=== PATIENT | female | born 1965 | race Caucasian/White ===

== ENCOUNTER 2018-05-26 16:16 | Outpatient (CLI) | payer BC ==
[2018-05-26 17:19] LABS: Hemoglobin 13.5 g/dL (12.0-16.0); Mean Corpuscular HGB CONC 34.9 g/dL (32.0-36.0); Mean Corpuscular Hemoglobin 31.6 pg (27.0-31.0); Mean Corpuscular Volume 90.6 fL (78.0-98.0); Mean Platelet Volume 6.4 fL (7.4-10.4); Platelet Count 249 thou/uL (130-400); RBC Distribution Width 11.5 % (11.5-14.5); Red Blood Cell (RBC) Count 4.28 mill/uL (4.20-5.40); White Blood Cell (WBC) Count 7.7 thou/uL (4.8-10.8)
[2018-05-26 17:32] LABS: BHCG - Serum Negative (NEGATIVE); Pregs Control Background? CLEAR/WHITE (CLR/WHITE); Pregs Control Bar Appear? YES (CONTROL BAR)
== END 2018-05-26 16:17 | disposition home or self-care (01) ==
LOC: LABBT 16:16
PROVIDERS: ATTEND Obstetrics & Gynecology
DX: Z01.812 Encounter for preprocedural laboratory examination (principal)
CPT/HCPCS: 84703; 85027; 86850; 86900; 86901

== ENCOUNTER 2018-05-26 17:00 | Inpatient (IN) | payer BC ==
[2018-05-26 16:56] VITALS: BMI 31.6
--- NOTE | 2018-05-26 20:02 | HP ---
DATE OF SURGERY SCHEDULED: 05/27/2018 HISTORY OF PRESENT ILLNESS: Ms. Hogan is a 52-year-old white female who presented with symptoms of pe lvic pain, fullness and heaviness. She has a history of uterine fibroids in the past. She has press ure in the pelvis with her bowel movements too. Last period was 3 months ago. She notes some urinar y frequency due to the pelvic fullness she is experiencing. She was seen in my office for this compl aint on 02/26/2018. On exam, she was noted to have an enlarged uterus with fibroids measuring 14-wee k size. Pelvic ultrasound was performed and confirmed the findings. PAST MEDICAL HISTORY: Some IBS with chronic constipation, GERD, restless legs and some depression, a nxiety. PAST SURGICAL HISTORY: Breast augmentation, laparoscopy x2 and tonsillectomy. SOCIAL HISTORY: Minimal alcohol use. She is a smoker. She is single and works c software developer. FAMILY HISTORY: Essential hypertension, hyperlipidemia. PHYSICAL EXAMINATION: VITAL SIGNS: Her blood pressure is 120/80, pulse 90, respirations 18, height 62 inches, weight 165 p ounds. BMI of 30.2. HEENT: Within normal limits. CHEST: Clear to auscultation. HEART: Regular rate and rhythm. S1, S2 heart sounds, no murmurs, rubs or gallops. ABDOMEN: Soft, nontender, nondistended. No hepatosplenomegaly. PELVIC: Vulva and vagina had no lesions. Cervix had no lesions. Pap smear obtained was normal. Ne gative for abnormal cells and HPV negative. Uterus was 12-14 week size consistent with fibroid ramirez es. Adnexa was nontender with no masses. ASSESSMENT: A 52-year-old white female with symptomatic 12-14 week uterine fibroids, pelvic pressure and pain with mass effect symptoms. PLAN: Proceed with a robotic total laparoscopic hysterectomy and BSO with excite procedure cadence chino for morcellation. Risks and benefits of this procedure were discussed in detail. She is set for surgery on 05/27/2018.
[2018-05-27] MEDS ORDERED: Famotidine/PF 20 mg/2ml Vial ONE (06:20)
[2018-05-27] MEDS ORDERED: Gabapentin 300 MG CAP ONE (06:20)
[2018-05-27] MEDS ORDERED: CEFAZOLIN/Water 2 GM/20 ML SYRINGE ONE (06:20)
[2018-05-27] MEDS ORDERED: CeleCOXIB 100 MG CAP ONE (06:20)
[2018-05-27] MEDS ORDERED: Bupivacaine HCl 0.5%/Epinephrine 1:200,000/PF 30 ml Vial ONE (06:53)
[2018-05-27] MEDS ORDERED: Ondansetron HCl/PF 4 MG/2 ML Vial ONE ×2 (07:00→14:26)
[2018-05-27] MEDS ORDERED: Scopolamine 1.5 mg/72 hour Patch ONE (07:07)
[2018-05-27] MEDS ORDERED: Midazolam HCl 2 mg/2 ml Vial ONE (07:07)
[2018-05-27] MEDS ORDERED: Fentanyl 100 MCG/2 ML VIAL ONE ×4 (07:13→10:28)
[2018-05-27] MEDS ORDERED: HYDROmorphone 0.5 MG/0.5 ML SYRINGE ONE (07:13)
[2018-05-27] MEDS ORDERED: Promethazine HCl 25 MG/ML VIAL ONE (07:13)
[2018-05-27] MEDS ORDERED: Morphine 4 MG/ML VIAL SLOW IVP PRN (09:54)
[2018-05-27] MEDS ORDERED: Bisacodyl 10 MG SUPP PR PRN (09:54)
[2018-05-27] MEDS ORDERED: Promethazine HCl 25 MG/ML VIAL IM PRN (09:54)
[2018-05-27] MEDS ORDERED: diphenhydrAMINE 25 MG CAP PO PRN (09:54)
[2018-05-27] MEDS ORDERED: traMADol HCl 50 MG TAB PO PRN (09:54)
[2018-05-27] MEDS ORDERED: Acetaminophen 325 MG TAB PO PRN (09:54)
[2018-05-27] MEDS ORDERED: Ondansetron HCl/PF 4 MG/2 ML Vial IVP PRN (09:54)
[2018-05-27] MEDS ORDERED: Estradiol 0.05mg/24 Hour Patch (Weekly) TD SCH (10:00)
--- NOTE | 2018-05-27 12:04 | OP ---
DATE OF PROCEDURE: 05/27/2018 PREOPERATIVE DIAGNOSIS: A 52-year-old white female with symptomatic 14 and 15-week uterine fibroids with pelvic pain and pressure. POSTOPERATIVE DIAGNOSIS: A 52-year-old white female with symptomatic 14 and 15-week uterine fibroids with pelvic pain and pressure. PROCEDURE PERFORMED: Robotic total laparoscopic hysterectomy with bilateral salpingo-oophorectomy wi th a removal of uterus via the EXCITE technique. SURGEON: Neema Ventura M.D. INTERMEDIATE MANAGER: Reyes Kenny D.O. ANESTHESIA: General endotracheal. ESTIMATED BLOOD LOSS: 30 mL. COMPLICATIONS: None. COUNTS: Correct x2. ANTIBIOTICS: Two grams Ancef eye surgeon to the OR along with the ERS protocol. PATHOLOGY: Uterus, cervix, bilateral tubes and ovaries. FINDINGS: 1. Normal bilateral tubes and ovaries. 2. Multiple numerous small 2-3 cm size uterine fibroids 3. Bilateral ureteral peristalsis visualized post-procedure and bladder was watertight distention ov er 300 mL post-procedure with clear urine draining. DISPOSITION: To the recovery room stable. DESCRIPTION OF OPERATIVE PROCEDURE: The patient previously received informed consent in regard to suh rgery. She was taken back to the operating room where she received a general endotracheal anesthetic agent without complications. She was placed in the dorsal lithotomy position with Curry stirrups an d prepped and draped in usual sterile fashion. A sidearm speculum along with Buckner catheter was plac ed at this time. Cervix was grasped with single tooth tenaculum and sounded to 10 cm. A size 10 cm MARIBETH uterine manipulator with 3.5 cm cervical cup was then placed. Attention was then turned to the abdomen where perspective trocar sites were infiltrated with 0.5% Marcaine with epinephrine. A 12 mm supraumbilical incision was made vertically. A Veress needle was entered into the abdominal cavity with the patient pressure to be less than 5 and insufflated to a patient pressure of 15, approximatel y 5 liters of carbon dioxide gas. Veress needle was then removed and a size 12 mm trocar was placed. The robotic laparoscope was introduced through the trocar sleeve confirming proper entry. Addition al bilateral lower quadrant 8 mm trocars were placed and laparoscopic guidance along with a right upp er quadrant 11 mm acute care assistant port. The small Gelpoint obturator was then placed in the supraumbilical incision. The incision was extended and the fascia approximately 2 cm and then the Gelpoint device were placed. The 12 mm trocar sleeve was placed through the Gelpoint apparatus prior to connection o f the Gelpoint to the obturator. The robot was then docked in usual fashion. The uterus was elevate d from the pelvis. The left IP ligament was identified. My acute care assistant grasped the fallopian tube. T he IP ligament was coagulated with bipolar fenestrated cautery was transected. Serial coagulation hu gging close uterine specimen of the broad ligament was carried out with transection to the left round ligament was reached. The ureter had been dissected atraumatically laterally towards the pelvic diana ewall during the process of freeing it from the operative site. The anterior leaf of the broad ligam ent was entered. The vesicouterine peritoneal incision was incised in a layering technique. The ayana dder was taken down atraumatically from the lower uterine segment and past the cervical vaginal barber n which was visualized through the indentation of the MARIBETH uterine manipulator cup. Uterine vessels were skeletonized. They were coagulated in the internal cervical os region. The right fallopian tub e was then grasped by my acute care assistant. The IP ligament on the right side was coagulated and transected with monopolar scissors. Serial coagulation of the broad ligament, hugging again close uterus was ca rried out until the right round ligament was reached. It was coagulated and transected. Again, the anterior leaf of the broad ligament was entered and the vesicouterine peritoneum was taken down in a layering technique dropping the bladder atraumatically past the cervical vaginal angle. The uterine vessels on the right side and uterus were skeletonized in a layering technique coagulated internal ce rvical os. The course of the ureter was noted to be lateral adjacent to the pelvic sidewall. Once t his had been accomplished, the anterior colpotomy was then developed starting from 12 to 3 and 12 to 9 o'clock position. The uterine vessels again were coagulated and transected during this process. T he posterior colpotomy was then completed from 6-9 and 6-12. The specimen was then left in the abdom en. Moistened sponge was then placed in the vagina proven to continue pneumoperitoneum. This was af ter the MARIBETH uterine manipulator was removed. My acute care assistant exchanged the monopolar scissors to Solarcentury needle tilt tray driver and then passed a Stratafix suture into the abdomen. The vaginal cuff was closed in r unning continuous fashion starting the right angle back towards the midline. Good hemostasis was con firmed. The pelvis irrigated and suctioned. All pedicle sites were noted to be hemostatic. The lar ge aces tissue containing bag which had previously been prepped during the placement of the Gelpoint. In regards to this had been folded accordion passage and that the bag was placed down into the pelvis . The sutures holding in a fixed accordion folding was cut opening the bag. My acute care assistant and me the n were able to open the bag and proper positioning and then deliver the uterine specimen into the bag . The edges of the bag were brought up and the black string of the aces bag was then grasped with at raumatic grasper and then this was brought through a loop that had been placed during the process of the bag and since this through, securing closure of the bag with the specimen inside of it. Then, my acute care assistant then brought in an atraumatic grasper through the Gelpoint and grab the bag tagged and pul led this up through the Gelpoint. The bipolar fenestrated cautery and Lockwood needle drivers had been removed. The robot was then undocked and the bag was then delivered through the small Gelpoint devic e intact with the specimen inside. The retractor of the Gelpoint was then pulled out and then placed with inside the bag to add protection of the bag while the morcellation process was carried out. Th e uterus was grasped with Sonu thyroid clamps with a scalpel and C cutting technique. The specimen was morcellated in situ and the bag removing in a piecemeal fashion until it was all removed. The ac es bag was then removed through the supraumbilical incision and was noted to be intact. There is no evidence of any bowel injury beneath the fascial site. The fascia was then closed with 0 Vicryl sutu re in running continuous fashion in the supraumbilical region. Remainder of the trocar sites were cl osed with 4-0 Monocryl suture in subcuticular fashion with Dermabond. The vaginal cuff was inspected and was hemostatic. The Buckner catheter was draining clear urine. The patient was awakened from ane sthesia and transferred to the recovery room in stable condition.
[2018-05-27] MEDS: Lactated Ringer's 1,000 ML IV SCH ×2 (12:08→18:22)
[2018-05-27] MEDS: Ketorolac Tromethamine 30 MG/ML VIAL IVP SCH ×3 (12:20→23:45)
[2018-05-27] MEDS: Acetaminophen 1,000 MG in Premix Bag 1 BAG IVPB SCH ×3 (12:20→23:45)
[2018-05-27] MEDS ORDERED: Lidocaine 1% PF 5 ML VIAL ONE (14:26)
[2018-05-27] MEDS ORDERED: Glycopyrrolate 0.2 MG/ML 5 ML SYRINGE ONE (14:26)
[2018-05-27] MEDS ORDERED: Dexamethasone 20 MG/5 ML VIAL ONE (14:26)
[2018-05-27] MEDS ORDERED: PHENYLEPHRINE-NS 100 MCG/ML 10 ML SYRINGE ONE (14:26)
[2018-05-27] MEDS ORDERED: PROPOFOL 200 MG/20 ML VIAL ONE (14:26)
[2018-05-27] MEDS ORDERED: Ketorolac Tromethamine 30 MG/ML VIAL ONE (14:26)
[2018-05-27] MEDS: Simethicone Chewable 80 MG TAB PO PRN (19:45)
[2018-05-27] MEDS: traMADol HCl 50 MG TAB PO PRN (19:45)
[2018-05-27] MEDS: Ibuprofen 800 MG TAB PO SCH (20:59)
[2018-05-27] MEDS ORDERED: rOPINIRole HCl 0.25 MG TAB PO SCH (21:00)
[2018-05-27] MEDS: Zolpidem Tartrate 5 MG TAB PO PRN (23:50)
[2018-05-28] MEDS: Zolpidem Tartrate 5 MG TAB PO PRN (00:10)
[2018-05-28] MEDS: Acetaminophen 1,000 MG in Premix Bag 1 BAG IVPB SCH (05:33)
[2018-05-28] MEDS: Ibuprofen 800 MG TAB PO SCH (05:34)
[2018-05-28] MEDS: Ketorolac Tromethamine 30 MG/ML VIAL IVP SCH (05:37)
[2018-05-28] MEDS: Lactated Ringer's 1,000 ML IV SCH (05:37)
[2018-05-28 06:14] LABS: Hemoglobin 12.7 g/dL (12.0-16.0); Mean Corpuscular HGB CONC 34.4 g/dL (32.0-36.0); Mean Corpuscular Hemoglobin 31.7 pg (27.0-31.0); Mean Corpuscular Volume 92.2 fL (78.0-98.0); Mean Platelet Volume 6.5 fL (7.4-10.4); Platelet Count 202 thou/uL (130-400); RBC Distribution Width 11.5 % (11.5-14.5); Red Blood Cell (RBC) Count 3.99 mill/uL (4.20-5.40); White Blood Cell (WBC) Count 9.4 thou/uL (4.8-10.8)
[2018-05-28] MEDS: traMADol HCl 50 MG TAB PO PRN (07:50)
[2018-05-28] MEDS: Simethicone Chewable 80 MG TAB PO PRN (07:57)
--- NOTE | 2018-05-28 08:17 | PDOC.EVN ---
Event Note - Event Note Event Note: Tolerating diet. Ambulating and voiding. AFVSS. HCT 36.8% ABD:soft/non distended normoactive bowel sounds. A/P Doing weel post op day 1 from robotic tlh/bso with excite d/c home .F/u in 2 and 6 weeks.
[2018-05-28 08:42] VITALS: BP 107/57; TEMP 98.5
[2018-05-28] MEDS ORDERED: VORTIOXETINE PO SCH (09:00)
[2018-05-28] MEDS ORDERED: LINACLOTIDE PO SCH (09:00)
[2018-05-28] MEDS ORDERED: LISDEXAMFETAMINE DIMESYLATE PO SCH (09:00)
== END 2018-05-28 09:35 | disposition home or self-care (01) | DRG 743 ==
LOC: SURG A 05-27 06:02 → 3SE 05-27 11:10
PROVIDERS: ADMIT Obstetrics & Gynecology; ATTEND Obstetrics & Gynecology
PROC: 0UT94ZZ Resection of Uterus, Percutaneous Endoscopic Approach (ICD-10-PCS; principal; 2018-05-27)
PROC: 0UT24ZZ Resection of Bilateral Ovaries, Percutaneous Endoscopic Approach (ICD-10-PCS; 2018-05-27)
PROC: 0UT74ZZ Resection of Bilateral Fallopian Tubes, Percutaneous Endoscopic Approach (ICD-10-PCS; 2018-05-27)
PROC: 8E0W4CZ Robotic Assisted Procedure of Trunk Region, Percutaneous Endoscopic Approach (ICD-10-PCS; 2018-05-27)
DX: D25.9 Leiomyoma of uterus, unspecified (principal); K21.9 Gastro-esophageal reflux disease without esophagitis; G25.81 Restless legs syndrome; F41.9 Anxiety disorder, unspecified; F32.9 Major depressive disorder, single episode, unspecified; K58.1 Irritable bowel syndrome with constipation; F17.210 Nicotine dependence, cigarettes, uncomplicated; Z79.899 Other long term (current) drug therapy
CPT/HCPCS: 36415; 85027; 88307; J0131; J0670; J1100; J1170; J1885; J2001; J2250; J2405; J2550; J2704; J3010; S0028

== ENCOUNTER 2019-11-16 08:13 | Outpatient (CLI) | payer OTHER ==
--- NOTE | 2019-11-18 10:56 | MMO ---
Bilateral MAMMO Bilat Screen DDI+CB. CLINICAL HISTORY: Patient is 53 years old and is seen for screening. VIEWS: The views performed were: bilateral craniocaudal with tomosynthesis and bilateral mediolateral oblique with tomosynthesis. FILMS COMPARED: The present examination has been compared to prior imaging studies performed at [facility] on 10/12/2010 and 01/13/2018. This study has been interpreted with the assistance of computer-aided detection. MAMMOGRAM FINDINGS: There are scattered fibroglandular densities. There are no suspicious masses, suspicious calcifications, or new areas of architectural distortion. IMPRESSION: THERE IS NO MAMMOGRAPHIC EVIDENCE OF MALIGNANCY. A ROUTINE FOLLOW-UP MAMMOGRAM IN 1 YEAR IS RECOMMENDED. THE RESULTS OF THIS EXAM WERE SENT TO THE PATIENT. ACR BI-RADS Category 1 - Negative MAMMOGRAPHY NOTE: 1. A negative mammogram report should not delay a biopsy if a dominant of clinically suspicious mass is present. 2. Approximately 10% to 15% of breast cancers are not detected by mammography. 3. Adenosis and dense breasts may obscure an underlying neoplasm. Reported by: YAMILE MATHIS MD Electonically Signed: [id number]
== END 2019-11-16 08:14 | disposition home or self-care (01) ==
LOC: BICMAMMO 08:13
PROVIDERS: ATTEND Family Medicine
DX: Z12.31 Encounter for screening mammogram for malignant neoplasm of breast (principal)
CPT/HCPCS: 77063; 77067

== ENCOUNTER 2020-12-09 15:50 | Emergency (ER) | payer OTHER ==
[2020-12-09 16:34] LABS: #Eosinphils 0.1 thou/uL (0.0-0.7); #Lymphocytes 2.9 thou/uL (1.20-3.40); #Monocytes 0.3 thou/uL (0.11-0.59); #Neutrophils 4.4 thou/uL (1.40-6.50); %Basophils 0.6 % (0.0-1.0); %Eosinophils 0.9 % (0.0-10.0); %Lymphocytes 37.5 % (21.0-51.0); %Monocytes 4.2 % (0.0-10.0); %Neutrophils 56.8 % (42.0-75.0); Hemoglobin 14.8 g/dL (12.0-16.0); Mean Corpuscular HGB CONC 34.1 g/dL (32.0-36.0); Mean Corpuscular Hemoglobin 30.1 pg (27.0-31.0); Mean Corpuscular Volume 88.2 fL (78.0-98.0); Mean Platelet Volume 6.7 fL (7.4-10.4); Platelet Count 288 thou/uL (130-400); RBC Distribution Width 12.1 % (11.5-14.5); Red Blood Cell (RBC) Count 4.91 mill/uL (4.20-5.40); White Blood Cell (WBC) Count 7.8 thou/uL (4.8-10.8)
[2020-12-09] MEDS ORDERED: Lorazepam 2 MG/ML VIAL ONE (16:36)
[2020-12-09] MEDS ORDERED: Pantoprazole 40 MG VIAL ONE (16:36)
[2020-12-09] MEDS ORDERED: Aspirin Chewable 81 MG TAB ONE (16:36)
--- NOTE | 2020-12-09 16:38 | RAD ---
Frontal radiograph chest 12/09/2020 COMPARISON: None HISTORY: Chest pain FINDINGS: There is no pneumothorax or pleural fluid and there is no focal consolidation or alveolar e karly. The heart and mediastinal contours appear grossly unremarkable IMPRESSION: No acute findings.
[2020-12-09 16:54] LABS: ALT (SGPT) 36 U/L (8-55); AST (SGOT) 28 U/L (5-34); Albumin 4.6 g/dL (3.5-5.0); Alkaline Phosphatase 126 U/L (40-110); Anion Gap 15 mmol/L (10-20); BUN (Urea Nitrogen) 13 mg/dL (9.8-20.1); Bilirubin, Total 0.4 mg/dL (0.2-1.2); CK (CPK) 59 U/L (29-168); Calc. Creatinine Clearance 0 mL/min (70-130); Calcium 9.4 mg/dL (7.8-10.44); Carbon Dioxide 25 mmol/L (22-29); Chloride 103 mmol/L (98-107); Globulin 2.4 g/dL (2.4-3.5); Glucose 100 mg/dL (70-105); Lipase 23 U/L (8-78); Sodium 139 mmol/L (136-145)
[2020-12-09] MEDS ORDERED: Acetaminophen 500 MG TAB ONE (17:31)
== END 2020-12-09 17:58 | disposition home or self-care (01) ==
LOC: ERS 15:50
DX: K29.70 Gastritis, unspecified, without bleeding (principal); R07.89 Other chest pain; K21.9 Gastro-esophageal reflux disease without esophagitis; F17.210 Nicotine dependence, cigarettes, uncomplicated; Z79.899 Other long term (current) drug therapy
CPT/HCPCS: 36415; 71045; 80053; 82550; 83690; 83880; 84484; 85025; 85379; 93005; 96374; 96375; C9113; J2060

== ENCOUNTER 2024-10-21 16:45 | Emergency (ER) | payer OTHER, BC ==
[2024-10-21] MEDS ORDERED: HYDROcodone/Acetaminophen 5/325 mg Tablet ONE (17:35)
== END 2024-10-21 18:23 | disposition home or self-care (01) ==
LOC: ERS 16:45
DX: S02.2XXA Fracture of nasal bones, initial encounter for closed fracture (principal); F17.210 Nicotine dependence, cigarettes, uncomplicated; W54.1XXA Struck by dog, initial encounter; Y93.89 Activity, other specified; Y92.009 Unspecified place in unspecified non-institutional (private) residence as the place of occurrence of the external cause; Z79.899 Other long term (current) drug therapy
CPT/HCPCS: 70450; 70486; 72125